=== PATIENT | female | born 1980 | race African-American/Black ===

== ENCOUNTER 2020-06-08 21:06 | Emergency (ER) | payer OTHER, MEDICAID ==
[~2020-06-08] VITALS: Ht 167.6 cm; Wt 117.9 kg
[2020-06-08] MEDS ORDERED: COZAAR 25 MG TA25 MG PO (21:16)
[2020-06-08] MEDS ORDERED: TRAMADOL 50 MG50 MG PO (22:43)
[2020-06-08 23:48] VITALS: BP 154/70
== END 2020-06-08 23:49 | disposition home or self-care (01) ==
LOC: M.ERS 21:06
DX: M25.561 Pain in right knee (principal); I10 Essential (primary) hypertension; E78.00 Pure hypercholesterolemia, unspecified; J45.909 Unspecified asthma, uncomplicated; Z88.6 Allergy status to analgesic agent